=== PATIENT | male | born 1985 | race Caucasian/White ===

== ENCOUNTER 2019-01-09 17:17 | Emergency (ER) | payer BC ==
[2019-01-09 22:36] LABS: Urine Appearance Cloudy; Urine Bilirubin Negative (Negative); Urine Blood Negative (Negative); Urine Color Yellow; Urine Glucose Negative (Negative); Urine Ketones Negative (Negative); Urine Nitrite Negative (Negative); Urine Protein Negative (Negative); Urine Specific Gravity 1.014 (1.010-1.030); Urine Urobilinogen Negative (Negative)
[2019-01-09] MEDS ORDERED: cefTRIAXone VIAL(*) 250 MG VIAL IM ONE (23:20)
[2019-01-09] MEDS ORDERED: DOXYcycline CAP(*) 100 MG PO ONE (23:20)
[2019-01-09] MEDS ORDERED: Lidocaine 1%* 5 ML VIAL INJ ONE (23:20)
--- NOTE | 2019-01-09 23:22 | ED ---
GI/ HPI - HPI Summary HPI Summary: 33 year old male presents with right groin pain for the past couple weeks. He states that the pain has been persisting. He states his history of epididymitis and it feels similar. He denies any penile discharge. No urinary symptoms. No abdominal pain. No urgency frequency. No blood in his urine. No nausea or vomiting. No fevers. Denies any history of STDs. - History of Current Complaint Chief Complaint: EDUrogenitalProblems Time Seen by Provider: 01/09/19 23:15 Stated Complaint: RIGHT TESTICLE SWELLING AND PAIN PER PT Pain Intensity: 2 - Allergy/Home Medications Allergies/Adverse Reactions: Allergies Allergy/AdvReac Type Severity Reaction Status Date / Time No Known Allergies Allergy Verified 01/09/19 17:37 PMH/Surg Hx/FS Hx/Imm Hx Endocrine/Hematology History: Denies: Hx Anticoagulant Therapy Respiratory History: Denies: Hx Asthma Infectious Disease History: No Infectious Disease History: Denies: Traveled Outside the [place] in Last 30 Days - Family History Known Family History: Positive: Non-Contributory - Social History Substance Use Type: Reports: None Smoking Status (MU): Never Smoked Tobacco Review of Systems Negative: Fever Negative: Chest Pain Negative: Shortness Of Breath Negative: Abdominal Pain Positive: other - right testicular pain All Other Systems Reviewed And Are Negative: Yes Physical Exam Triage Information Reviewed: Yes Vital Signs On Initial Exam: Initial Vitals Temp Pulse Resp BP Pulse Ox 99.4 F 83 16 137/90 98 01/09/19 17:36 01/09/19 17:36 01/09/19 17:36 01/09/19 17:36 01/09/19 17:36 Vital Signs Reviewed: Yes Appearance: Positive: Well-Appearing Skin: Positive: Warm, Dry Head/Face: Positive: Normal Head/Face Inspection Eyes: Positive: Normal, Conjunctiva Clear ENT: Positive: Pharynx normal Respiratory/Lung Sounds: Positive: Clear to Auscultation, Breath Sounds Present Cardiovascular: Positive: Normal, RRR Abdomen Description: Positive: Nontender, Soft Bowel Sounds: Positive: Present Male Genital Exam: Positive: Normal Genitalia, Normal Prostate, No Hernia, Epididymal Tenderness. Negative: Scrotum Tenderness (R), Scrotum Tenderness (L) , Testicular Tenderness (R), Testicular Tenderness (L) Musculoskeletal: Positive: Normal Neurological: Positive: Normal Psychiatric: Positive: Normal Diagnostics - Vital Signs Vital Signs Temp Pulse Resp BP Pulse Ox 01/09/19 19:38 99.4 F 87 16 131/84 87 01/09/19 17:36 99.4 F 83 16 137/90 98 - Laboratory Lab Results: Lab Results 01/09/19 Range/Units 22:17 Urine Color Yellow Urine Appearance Cloudy Urine pH 7.0 (5-9) Ur Specific [place] 1.014 (1.010-1.030) Urine Protein Negative (Negative) Urine Ketones Negative (Negative) Urine Blood Negative (Negative) Urine Nitrate Negative (Negative) Urine Bilirubin Negative (Negative) Urine Urobilinogen Negative (Negative) Ur Leukocyte Esterase Negative (Negative) Urine Glucose Negative (Negative) Lab Statement: Any lab studies that have been ordered have been reviewed, and results considered in the medical decision making process. - Ultrasound No standard instances Ultrasound Interpretation Completed By: Radiologist Summary of Ultrasound Findings: IMPRESSION: Mild right epididymitis. No additional findings to correlate with patient's. symptomatology. GIGU Course/Dx - Course Course Of Treatment: 33 year old male presents with right groin pain for the past couple weeks. He states that the pain has been persisting. He states his history of epididymitis and it feels similar. He denies any penile discharge. No urinary symptoms. No abdominal pain. No urgency frequency. No blood in his urine. No nausea or vomiting. No fevers. Denies any history of STDs. On exam has tenderness over the epididymitis on the right. Ultrasound shows epididymitis. Given dose of Rocephin and doxycycline. We'll continue doxcycline. Gave referral to urology. Patient understands agrees with plan. - Diagnoses Differential Diagnoses - Male: Epididymitis, STD, Urinary Tract Infection Provider Diagnoses: Acute epididymitis Discharge - Sign-Out/Discharge Documenting (check all that apply): Patient Departure Patient Received Moderate/Deep Sedation with Procedure: No - Discharge Plan Condition: Good Disposition: HOME Prescriptions: DOXYcycline CAP(*) [DOXYcycline 100MG CAP(*)] 100 mg PO BID #19 cap Patient Education Materials: Epididymitis (ED) Referrals: Matt Boyer MD [Medical Doctor] - Additional Instructions: take doxycycline twice a day for 10 days follow up with urology Return to ED if develop any new or worsening symptoms - Billing Disposition and Condition Condition: GOOD Disposition: Home
[2019-01-09 23:42] VITALS: BP 129/75
[2019-01-10 13:56] LABS: Neisseria gonorrhoeae (GC) RNA Negative (Negative)
== END 2019-01-09 23:41 | disposition home or self-care (01) ==
LOC: ED 17:17
DX: N45.1 Epididymitis (principal); N50.89 Other specified disorders of the male genital organs
CPT/HCPCS: 76870; 81003; 87491; 87591; 99283; A9270-GY; J0696